=== PATIENT | male | born 1990 | race Caucasian/White ===

== ENCOUNTER 2022-10-14 18:57 | Emergency (ER) | payer BC ==
[2022-10-14 19:16] VITALS: BP 135/75; PULSE 75
[2022-10-14] MEDS ORDERED: Bacitracin Oint 1 GM U/D Packet TOP ONE (20:38)
== END 2022-10-14 20:54 | disposition home or self-care (01) ==
LOC: LL.ED 18:57
DX: S40.812A Abrasion of left upper arm, initial encounter (principal); W22.09XA Striking against other stationary object, initial encounter
CPT/HCPCS: 73090-LT; 99283